=== PATIENT | female | born 2005 | race Caucasian/White ===

== ENCOUNTER 2024-08-27 02:44 | Emergency (ER) | payer SELFPAY ==
[2024-08-27] MEDS ORDERED: LORAZEPAM 1 MG TABLET ONE (02:50)
--- NOTE | 2024-08-27 02:59 | EDPHYS ---
Physician Documentation [facility] Name: Sakina Davis Age: 19 yrs Sex: Female : 2005 Arrival Date: 08/27/2024 Time: 02:44 Bed 5 Private MD: ED Physician Job Patel HPI: 08/27 02:48 This 19 yrs old Female presents to ER via Unassigned with complaints of sp4 withdrawing from Xanax . 02:59 19-year-old female presents with police escort patient is currently in residential. Patient sp4 presents with moderate to severe anxiety associated with withdrawal from Xanax and Prozac. . 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 - Infectious Disease History:: Denies. Denies. - Social history:: Smoking status: Reported history of juuling and/or vaping. Smoking status: Reported history of juuling and/or vaping. Patient uses alcohol, street drugs, marijuana. - Family history:: not pertinent. ROS: 02:59 Constitutional: Negative for fever, chills, and weight loss, positive for acute anxiety sp4 and withdrawal 02:59 All other systems are negative, Exam: 03:11 Constitutional: This is a well developed, well nourished patient who is awake, alert, sp4 anxious appearing female Head/Face: Normocephalic, atraumatic. Eyes: Pupils equal round and reactive to light, extra-ocular motions intact. Lids and lashes normal. Conjunctiva and sclera are not injected. Cornea within normal limits. Periorbital areas with no swelling, redness, or edema. ENT: Nares patent. No nasal discharge, no septal abnormalities noted. Tympanic membranes are normal and external auditory canals are clear. Oropharynx with no redness, swelling, or masses, exudates, or evidence of obstruction, uvula midline. Mucous membranes moist. Neck: Trachea midline, no thyromegaly or masses palpated, and no cervical lymphadenopathy. Supple, full range of motion without nuchal rigidity, or vertebral point tenderness. Chest/axilla: Normal chest wall appearance and motion. Nontender with no deformity. No lesions are appreciated. Cardiovascular: Regular rate and rhythm with a normal S1 and S2. No gallops, murmurs, or rubs. Normal PMI, no JVD. No pulse deficits. Respiratory: Lungs have equal breath sounds bilaterally, clear to auscultation and percussion. No rales, rhonchi or wheezes noted. No increased work of breathing, no retractions or nasal flaring. Abdomen/GI: Soft, with normal bowel sounds. No distension or tympany. No guarding or rebound. No evidence of tenderness throughout. Back: No spinal tenderness. No costovertebral tenderness. Skin: Warm, dry with normal turgor. Normal color with no rashes, no lesions, and no evidence of cellulitis. MS/ Extremity: Pulses equal, no cyanosis. Neurovascular intact. Full, normal range of motion. Neuro: Awake and alert, GCS 15, oriented to person, place, time, and situation. Cranial nerves II-XII grossly intact. Motor strength 5/5 in all extremities. Sensory grossly intact. Psych: Awake, alert, with orientation to person, place and time. Behavior, mood, and affect are within normal limits Vital Signs: 02:56 BP 115 / 93; Pulse 96; Resp 17; Temp 97.8; Pulse Ox 100% ; Weight 54.43 kg; Height 5 bm8 ft. 5 in. ; Pain 0/10; 02:56 Body Mass Index 19.97 (54.43 kg, 165.1 cm) bm8 02:56 Pain Scale: Adult bm8 Enriqueta Coma Score: 03:01 Eye Response: spontaneous(4). Motor Response: obeys commands(6). Verbal Response: bm8 oriented(5). Total: 15. 03:11 Eye Response: spontaneous(4). Motor Response: obeys commands(6). Verbal Response: sp4 oriented(5). Total: 15. MDM: 02:58 Medical Screening Exam initiated sp4 03:11 Differential diagnosis: drug withdrawal. acute psychotic break, depression, psychosis sp4 secondary to non-compliance. Data reviewed: vital signs, nurses notes. ED course: Patient was administered lorazepam 2 mg p.o. Patient stable for discharge back to residential.. Administered Medications: 02:56 Drug: LORazepam PO 2 mg PO once Route: PO; bm8 03:00 Follow up: Response: No adverse reaction bm8 03:00 Follow up: Response: No adverse reaction bm8 Disposition Summary: 08/27/24 02:58 Discharge Ordered Notes: Location: Home sp4 Problem: new sp4 Symptoms: have improved sp4 Condition: Stable sp4 Diagnosis - Acute benzodiazepine withdrawal, acute anxiety attack sp4 Followup: sp4 - With: Private Physician - When: 7 - 10 days - Reason: Re-evaluation by your physician Discharge Instructions: - Discharge Summary Sheet sp4 - Benzodiazepine Withdrawal sp4 Forms: - Patient Portal Instructions sp4 Signatures: Caitie Robins RN RN ha1 Job Patel MD MD sp4 Blane Petty RN RN bm8
--- NOTE | 2024-08-27 02:59 | ER ---
Nurse's Notes [facility] Name: Sakina Davis Age: 19 yrs Sex: Female : 2005 Arrival Date: 08/27/2024 Time: 02:44 Bed 5 Private MD: Diagnosis: Acute benzodiazepine withdrawal, acute anxiety attack Presentation: 08/27 02:49 Chief complaint: [employer] [employer] INSOLE MACHINE REPORTS PATIENT IS OFF PSYCH MEDICATIONS BUT ha1 WILL GET THEM TOMORROW WHEN A FAMILY MEMBER BRINGS THEM TO HER. PATIENT REPORTS FEELING ANXIOUS DUE TO WITHDRAWS OF MEDICATIONS. 03:04 Coronavirus screen: At this time, the client does not indicate any symptoms associated bm8 with coronavirus-19. Ebola Screen: No symptoms or risks identified at this time. Initial Sepsis Screen: Does the patient meet any 2 criteria? No. Patient's initial sepsis screen is negative. Does the patient have a suspected source of infection? No. Patient's initial sepsis screen is negative. Risk Assessment: Do you want to hurt yourself or someone else? Patient reports no desire to harm self or others. Onset of symptoms was August 24, 2024. 03:04 Acuity: KADY 5 bm8 03:04 Method Of Arrival: Ambulatory bm8 Triage Assessment: 02:56 General: Appears distressed, comfortable, Behavior is anxious. Pain: Denies pain. EENT: bm8 No deficits noted. No signs and/or symptoms were reported regarding the EENT system. Neuro: Level of Consciousness is awake, alert, obeys commands, Oriented to person, place, time, situation, Appropriate for age Reports anxiety. Cardiovascular: Denies chest pain, Heart tones S1 S2 present Capillary refill < 3 seconds in bilateral fingers. Respiratory: No deficits noted. Airway is patent Respiratory effort is even, unlabored, Respiratory pattern is regular, symmetrical, Breath sounds are clear bilaterally. GI: No deficits noted. No signs and/or symptoms were reported involving the gastrointestinal system. : No deficits noted. No signs and/or symptoms were reported regarding the genitourinary system. Derm: No deficits noted. No signs and/or symptoms reported regarding the dermatologic system. Musculoskeletal: No deficits noted. No signs and/or symptoms reported regarding the musculoskeletal system. 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 - Infectious Disease History:: Denies. Denies. - Social history:: Smoking status: Reported history of juuling and/or vaping. Smoking status: Reported history of juuling and/or vaping. Patient uses alcohol, street drugs, marijuana. - Family history:: not pertinent. Screenin:01 [facility] ED Fall Risk Assessment (Adult) History of falling in the last 3 months, bm8 including since admission No falls in past 3 months (0 pts) Confusion or Disorientation No (0 pts) Intoxicated or Sedated No (0 pts) Impaired Gait No (0 pts) Mobility Assist Device Used No (0 pt) Altered Elimination No (0 pt) Score/Fall Risk Level 0 - 2 = Low Risk Oriented to surroundings, Maintained a safe environment, Educated pt \T\ family on fall prevention, incl call for assistance when getting out of bed, Assessed \T\ reinforced patient's understanding of fall precautions, Hourly rounding (assess needs \T\ fall precautionary measures) done, Used ambulatory aids as needed (educated on \T\ assisted with), Used gait belt as appropriate. Abuse screen: Denies threats or abuse. Nutritional screening: No deficits noted. Tuberculosis screening: No symptoms or risk factors identified. Assessment: 03:01 Reassessment: see triage assessment. bm8 Vital Signs: 02:56 BP 115 / 93; Pulse 96; Resp 17; Temp 97.8; Pulse Ox 100% ; Weight 54.43 kg; Height 5 bm8 ft. 5 in. ; Pain 0/10; 02:56 Body Mass Index 19.97 (54.43 kg, 165.1 cm) bm8 02:56 Pain Scale: Adult bm8 Enriqueta Coma Score: 03:01 Eye Response: spontaneous(4). Motor Response: obeys commands(6). Verbal Response: bm8 oriented(5). Total: 15. 03:11 Eye Response: spontaneous(4). Motor Response: obeys commands(6). Verbal Response: sp4 oriented(5). Total: 15. ED Course: 02:46 Patient arrived in ED. gm2 02:48 Job Patel MD is Attending Physician. sp4 02:56 Blane Petty, RN is Primary Nurse. bm8 02:56 Arm band placed on right wrist. bm8 03:01 Patient has correct armband on for positive identification. Bed in low position. Side bm8 rails up X 1. Provided Education on: post er care. Client placed on continuous cardiac and pulse oximetry monitoring. NIBP monitoring applied. Pulse ox on. NIBP on. Door closed. Noise minimized. Head of bed elevated. 03:01 No provider procedures requiring assistance completed. Patient did not have IV access bm8 during this emergency room visit. 03:05 Triage completed. bm8 Administered Medications: 02:56 Drug: LORazepam PO 2 mg PO once Route: PO; bm8 03:00 Follow up: Response: No adverse reaction bm8 03:00 Follow up: Response: No adverse reaction bm8 Medication: 03:01 VIS not applicable for this client. bm8 Outcome: 02:58 Discharge ordered by . sp4 03:01 Discharged to Law Enforcement bm8 03:01 Condition: stable 03:01 Discharge instructions given to patient, police, Instructed on discharge instructions, follow up and referral plans. Demonstrated understanding of instructions, follow-up care, medications, 03:10 Patient left the ED. lg3 Signatures: Rosie Sanon RN RN lg3 Caitie Robins RN RN 1 Job Patel MD MD sp4 Yusra Restrepo 2 Blane Petty, RN RN bm8
[2024-08-27 03:15] VITALS: BP 115/93; TEMP 97.8; O2SAT 100
== END 2024-08-27 03:10 | disposition home or self-care (01) ==
LOC: ER 02:44
DX: F13.239 Sedative, hypnotic or anxiolytic dependence with withdrawal, unspecified (principal)
CPT/HCPCS: 99283